=== PATIENT | male | born 1985 | race Two or more races ===

== ENCOUNTER 2022-02-28 18:10 | Emergency (ER) | payer OTHER ==
[~2022-02-28] VITALS: Ht 172.7 cm; Wt 90.7 kg
[2022-02-28 18:15] VITALS: BP 129/90
[2022-02-28] MEDS ORDERED: traMADol HCL 50 MG TAB PO ONE (19:15)
== END 2022-02-28 20:29 | disposition home or self-care (01) ==
LOC: ER 18:13
DX: S62.352A Nondisplaced fracture of shaft of third metacarpal bone, right hand, initial encounter for closed fracture (principal); W18.39XA Other fall on same level, initial encounter; Y93.89 Activity, other specified; Y92.89 Other specified places as the place of occurrence of the external cause; Y99.8 Other external cause status
CPT/HCPCS: 29125; 73130